=== PATIENT | male | born 2000 | race Caucasian/White ===

== ENCOUNTER → 2022-12-31 | Outpatient (CLI) | payer OTHER | END | disposition home or self-care (01) | LOC: SONOGRAMA 07:34 | DX: K21.9 Gastro-esophageal reflux disease without esophagitis (principal); K80.80 Other cholelithiasis without obstruction ==

== ENCOUNTER 2023-02-06 09:50 | Outpatient (CLI) | payer OTHER ==
[2023-02-07] MEDS ORDERED: LEVSIN0.125 MG PO (05:28)
[2023-02-07] MEDS ORDERED: PANTOPRAZOLE SO20 MG PO (05:28)
[2023-02-07] MEDS ORDERED: PEPCID AC10 MG PO (05:29)
== END 2023-02-06 09:51 | disposition home or self-care (01) ==
LOC: EDBD 09:50 → NUCLEAR 09:50
PROVIDERS: ATTEND Surgery
DX: K82.8 Other specified diseases of gallbladder (principal)
CPT/HCPCS: 78227; A9537; J2805

== ENCOUNTER 2023-02-07 05:14 | Emergency (ER) | payer OTHER ==
[~2023-02-07] VITALS: Ht 172.7 cm; Wt 127.0 kg
[2023-02-07] MEDS ORDERED: LEVSIN0.125 MG PO (05:28)
[2023-02-07] MEDS ORDERED: PANTOPRAZOLE SO20 MG PO (05:28)
[2023-02-07] MEDS ORDERED: PEPCID AC10 MG PO (05:29)
== END 2023-02-07 09:32 | disposition home or self-care (01) ==
LOC: ER 05:14
DX: R10.11 Right upper quadrant pain (principal); R11.10 Vomiting, unspecified